=== PATIENT | female | born 1955 | race Caucasian/White ===

== ENCOUNTER 2021-11-13 18:44 | Inpatient (IN) | payer BC, MEDICARE ==
[~2021-11-13 18:44] MED LIST: Iopamidol 370 76% 100 ML VIAL ONE
[2021-11-13 19:34] LABS: Bilirubin Neg (Negative); Blood, Urine 50 (Negative); Clarity Clear (Clear); Glucose, Urine (Dipstick) Normal (Negative); Ketone, Urine Negative (Negative); Leukocyte 500 (Negative); Nitrite Negative (Negative); Protein, Urine (Dipstick) 15 mg/dl (Neg-Trace); Specific Gravity, Urine 1.005 (1.002-1.036); Urobilinogen Normal mg/dL (Less than 2)
[2021-11-13 19:38] LABS: #Monocytes 1.1 10x3/uL (0.0-1.1); #Neutrophils 5.4 10x3/uL (1.5-8.4); %Basophils 0.5 % (0.0-2.0); %Eosinophils 0.1 % (0.0-6.0); %Lymphocytes 19.4 % (18.0-47.0); %Neutrophils 66.6 % (40.0-75.0); Hemoglobin 10.2 g/dL (12.0-15.5); Mean Corpuscular Hemoglobin 29.1 pg (27.0-33.0); Mean Corpuscular Volume 85.5 fl (81.6-98.3); Mean Platelet Volume 10.3 fl (7.4-10.4); Platelet Count 245 10x3/uL (150-450); RBC Distribution Width 12.6 % (11.5-14.5); Red Blood Cell (RBC) Count 3.51 10x6/uL (3.90-5.03); White Blood Cell (WBC) Count 8.1 10x3/uL (3.5-10.5)
[2021-11-13] MEDS ORDERED: Ketorolac Tromethamine 30 MG/ML VIAL ONE (19:39)
[2021-11-13] MEDS ORDERED: methylPREDNISolone Sod Succ 40 MG VIAL ONE (19:39)
[2021-11-13] MEDS ORDERED: Acetaminophen 500 MG TAB ONE (19:39)
[2021-11-13] MEDS ORDERED: diphenhydrAMINE 50 MG/ML VIAL ONE ×2 (19:39→21:57)
[2021-11-13 19:40] LABS: Bacteria/HPF Rare-Few HPF (None Seen); RBC/HPF 0-3 HPF (0-3)
[2021-11-13] MEDS ORDERED: Famotidine/PF 20 mg/2ml Vial ONE (19:40)
[2021-11-13 19:52] LABS: ALT (SGPT) 16 U/L (8-55); AST (SGOT) 22 U/L (5-34); Albumin 4.2 g/dL (3.4-4.8); Alkaline Phosphatase 83 U/L (40-110); Anion Gap 16 mmol/L (10-20); BUN (Urea Nitrogen) 14 mg/dL (9.8-20.1); Bilirubin, Total 0.6 mg/dL (0.2-1.2); Calc. Creatinine Clearance 0 mL/min (70-130); Calcium 9.6 mg/dL (7.8-10.44); Carbon Dioxide 23 mmol/L (23-31); Chloride 98 mmol/L (98-107); Globulin 2.9 g/dL (2.4-3.5); Glucose 108 mg/dL (80-115); Lipase 27 U/L (8-78); Protein, Total 7.1 g/dL (5.8-8.1); Sodium 134 mmol/L (136-145)
[2021-11-13 19:59] LABS: Potassium 2.9 mmol/L (3.5-5.1)
[2021-11-13 20:53] LABS: SARS-CoV-2 NAA Rapid Test Not Detected (NotDetected)
[2021-11-13] MEDS ORDERED: Potassium Chloride 20 MEQ TAB ONE (22:21)
[2021-11-13] MEDS ORDERED: cefTRIAXone\\ROCEPHIN 1 GM VIAL ONE (22:21)
[2021-11-13] MEDS ORDERED: metroNIDAZOLE 500 MG/100 ML BAG ONE (23:01)
[2021-11-13] MEDS ORDERED: Senokot S 8.6-50 MG TAB PO PRN (23:02)
[2021-11-13] MEDS ORDERED: Nitroglycerin 0.4 MG TAB (25 Tab Bottle) SL PRN (23:02)
[2021-11-13] MEDS ORDERED: Ondansetron PF 4 MG/2 ML Vial IVP PRN (23:02)
[2021-11-13] MEDS ORDERED: Zolpidem Tartrate 5 MG TAB PO PRN (23:02)
[2021-11-13] MEDS ORDERED: Calcium Carbonate 500 MG ChewTAB PO PRN (23:02)
[2021-11-13] MEDS ORDERED: Lactated Ringer's 1,000 ML IV SCH (23:15)
[2021-11-14] MEDS ORDERED: Potassium Chloride 20 MEQ TAB PO SCH (00:30)
[2021-11-14 00:40] VITALS: BMI 26.4
[2021-11-14] MEDS ORDERED: Aspirin Chewable 81 MG TAB PO SCH (01:00)
[2021-11-14] MEDS: Acetaminophen 325 MG TAB PO PRN ×2 (03:54→13:15)
[2021-11-14 04:45] LABS: Hemoglobin 10.5 g/dL (12.0-15.5); Mean Corpuscular HGB CONC 34.7 g/dL (32.0-36.0); Mean Corpuscular Hemoglobin 29.1 pg (27.0-33.0); Mean Corpuscular Volume 83.9 fl (81.6-98.3); Mean Platelet Volume 10.3 fl (7.4-10.4); Platelet Count 253 10x3/uL (150-450); RBC Distribution Width 12.5 % (11.5-14.5); Red Blood Cell (RBC) Count 3.61 10x6/uL (3.90-5.03); White Blood Cell (WBC) Count 7.7 10x3/uL (3.5-10.5)
[2021-11-14 04:52] LABS: ALT (SGPT) 17 U/L (8-55); AST (SGOT) 19 U/L (5-34); Albumin 3.8 g/dL (3.4-4.8); Alkaline Phosphatase 86 U/L (40-110); Anion Gap 15 mmol/L (10-20); BUN (Urea Nitrogen) 15 mg/dL (9.8-20.1); Bilirubin, Total 0.3 mg/dL (0.2-1.2); Calc. Creatinine Clearance 86 mL/min (70-130); Calcium 9.3 mg/dL (7.8-10.44); Carbon Dioxide 21 mmol/L (23-31); Cardiac Risk 2.7 (Less than 4.5); Chloride 109 mmol/L (98-107); Cholesterol 133 mg/dl (< 200 Desired); Globulin 2.7 g/dL (2.4-3.5); Glucose 173 mg/dL (80-115); HDL Cholesterol 50 mg/dL (>60 Neg Risk); LDL Cholesterol, Calculated 68 mg/dL; Magnesium 1.8 mg/dL (1.6-2.6); Protein, Total 6.5 g/dL (5.8-8.1); Sodium 141 mmol/L (136-145); Triglycerides 75 mg/dL (Less than 150)
[2021-11-14] MEDS: metroNIDAZOLE 500 MG in Premix Bag 1 BAG IVPB SCH ×3 (05:30→21:31)
[2021-11-14 06:13] LABS: MDiff Complete? YES
[2021-11-14 06:17] LABS: Band 4 % (5-11); Lymphocytes 9 % (21-51); Monocytes 2 % (0-10); Neutrophil 85 % (42-75)
[2021-11-14 06:18] LABS: Platelet Morphology Comment Appears Adequate; RBC Morphology Normal
[2021-11-14] MEDS: Enoxaparin Sodium 40 MG/0.4 ML SYRINGE SC SCH (09:44)
[2021-11-14] MEDS: Aspirin Chewable 81 MG TAB PO SCH (09:44)
[2021-11-14] MEDS ORDERED: Non-Formulary Medication 1 EACH (Fluticasone Propionate [Flovent Diskus] 50 MCG Blst.W.Dev PRN (14:55)
[2021-11-14] MEDS ORDERED: Sodium Chloride 0.9% 100 ML ONE (20:34)
[2021-11-14] MEDS: Atorvastatin Calcium 40 MG TAB PO SCH (20:45)
[2021-11-14] MEDS: Montelukast Sodium 10 mg Tablet PO SCH (20:45)
[2021-11-14] MEDS ORDERED: cefTRIAXone\\ROCEPHIN 1 GM in Sodium Chloride 0.9% 100 ML IVPB SCH (22:00)
[2021-11-15] MEDS ORDERED: HYDROcodone/Acetaminophen 5/325 mg Tablet PO SCH (00:45)
[2021-11-15] MEDS: metroNIDAZOLE 500 MG in Premix Bag 1 BAG IVPB SCH ×2 (05:37→14:03)
[2021-11-15 08:20] LABS: #Basophils 0.1 10x3/uL (0.0-0.2); #Eosinphils 0.1 10x3/uL (0.0-0.5); #Monocytes 0.7 10x3/uL (0.0-1.1); #Neutrophils 4.3 10x3/uL (1.5-8.4); %Basophils 0.8 % (0.0-2.0); %Eosinophils 1.2 % (0.0-6.0); %Lymphocytes 28.7 % (18.0-47.0); %Monocytes 9.1 % (0.0-10.0); %Neutrophils 59.8 % (40.0-75.0); Mean Corpuscular HGB CONC 32.5 g/dL (32.0-36.0); Mean Corpuscular Hemoglobin 28.5 pg (27.0-33.0); Mean Corpuscular Volume 87.7 fl (81.6-98.3); Mean Platelet Volume 10.4 fl (7.4-10.4); Platelet Count 250 10x3/uL (150-450); RBC Distribution Width 12.9 % (11.5-14.5); Red Blood Cell (RBC) Count 3.16 10x6/uL (3.90-5.03); White Blood Cell (WBC) Count 7.3 10x3/uL (3.5-10.5)
[2021-11-15 08:35] LABS: ALT (SGPT) 15 U/L (8-55); AST (SGOT) 16 U/L (5-34); Albumin 3.5 g/dL (3.4-4.8); Alkaline Phosphatase 69 U/L (40-110); Anion Gap 16 mmol/L (10-20); BUN (Urea Nitrogen) 13 mg/dL (9.8-20.1); Bilirubin, Total 0.2 mg/dL (0.2-1.2); Calc. Creatinine Clearance 97 mL/min (70-130); Carbon Dioxide 22 mmol/L (23-31); Chloride 110 mmol/L (98-107); Globulin 2.3 g/dL (2.4-3.5); Glucose 92 mg/dL (80-115); Magnesium 1.9 mg/dL (1.6-2.6); Potassium 3.6 mmol/L (3.5-5.1); Protein, Total 5.8 g/dL (5.8-8.1); Sodium 144 mmol/L (136-145)
[2021-11-15] MEDS: Enoxaparin Sodium 40 MG/0.4 ML SYRINGE SC SCH (09:14)
[2021-11-15] MEDS: Acetaminophen 325 MG TAB PO PRN (09:14)
[2021-11-15] MEDS: Montelukast Sodium 10 mg Tablet PO SCH ×2 (09:14→20:34)
[2021-11-15] MEDS: Diltiazem HCl SR 60 mg Capsule PO SCH (09:15)
[2021-11-15] MEDS: Aspirin Chewable 81 MG TAB PO SCH (09:15)
[2021-11-15] MEDS: Ciprofloxacin 500 MG TAB PO SCH (20:34)
[2021-11-15] MEDS: Atorvastatin Calcium 40 MG TAB PO SCH (20:34)
[2021-11-15] MEDS: metroNIDAZOLE 500 MG TAB PO SCH (22:12)
[2021-11-16 04:20] LABS: #Basophils 0.1 10x3/uL (0.0-0.2); #Eosinphils 0.1 10x3/uL (0.0-0.5); #Monocytes 0.5 10x3/uL (0.0-1.1); #Neutrophils 3.5 10x3/uL (1.5-8.4); %Basophils 0.8 % (0.0-2.0); %Eosinophils 1.7 % (0.0-6.0); %Lymphocytes 29.7 % (18.0-47.0); %Monocytes 9.1 % (0.0-10.0); %Neutrophils 58.4 % (40.0-75.0); Hemoglobin 9.2 g/dL (12.0-15.5); Mean Corpuscular HGB CONC 33.5 g/dL (32.0-36.0); Mean Corpuscular Hemoglobin 28.4 pg (27.0-33.0); Mean Corpuscular Volume 84.9 fl (81.6-98.3); Platelet Count 251 10x3/uL (150-450); RBC Distribution Width 12.8 % (11.5-14.5); Red Blood Cell (RBC) Count 3.24 10x6/uL (3.90-5.03); White Blood Cell (WBC) Count 5.9 10x3/uL (3.5-10.5)
[2021-11-16 04:35] LABS: Anion Gap 13 mmol/L (10-20); BUN (Urea Nitrogen) 12 mg/dL (9.8-20.1); Calc. Creatinine Clearance 98 mL/min (70-130); Calcium 8.8 mg/dL (7.8-10.44); Carbon Dioxide 23 mmol/L (23-31); Chloride 109 mmol/L (98-107); Glucose 98 mg/dL (80-115); Iron 50 ug/dL (50-170); Iron Binding Capacity, Total 241 mcg/dL (265-497); Magnesium 1.7 mg/dL (1.6-2.6); Potassium 3.3 mmol/L (3.5-5.1); Sodium 142 mmol/L (136-145)
[2021-11-16] MEDS: metroNIDAZOLE 500 MG TAB PO SCH ×2 (06:00→14:13)
[2021-11-16] MEDS: Ciprofloxacin 500 MG TAB PO SCH (06:00)
[2021-11-16] MEDS ORDERED: Potassium Chloride 20 MEQ TAB PO SCH (08:00)
[2021-11-16] MEDS: Magnesium 2 GM/50 ML(in water) 2 GM in Premix Bag 1 BAG IVPB SCH ×2 (10:41→13:51)
[2021-11-16] MEDS: Aspirin Chewable 81 MG TAB PO SCH (10:41)
[2021-11-16] MEDS: Potassium Chloride 20 MEQ in Premix Bag 1 BAG IVPB SCH ×2 (10:42→13:51)
[2021-11-16] MEDS: Montelukast Sodium 10 mg Tablet PO SCH (10:42)
[2021-11-16] MEDS: Diltiazem HCl SR 60 mg Capsule PO SCH (10:42)
[2021-11-16 11:50] VITALS: TEMP 96.1
[2021-11-16 12:07] LABS: Hemoglobin A1c 5.7 % (4.0-6.0)
[2021-11-16 12:24] VITALS: BP 135/86
[2021-11-16 12:57] LABS: BUN (Urea Nitrogen) 11 mg/dL (9.8-20.1); Calc. Creatinine Clearance 92 mL/min (70-130); Chloride 106 mmol/L (98-107); Glucose 98 mg/dL (80-115); Magnesium 1.9 mg/dL (1.6-2.6); Potassium 3.6 mmol/L (3.5-5.1)
[2021-11-16 14:45] LABS: Anion Gap 14 mmol/L (10-20); Calcium 9.3 mg/dL (7.8-10.44); Carbon Dioxide 23 mmol/L (23-31); Sodium 139 mmol/L (136-145)
== END 2021-11-16 15:00 | disposition home or self-care (01) | DRG 871 ==
LOC: CSHERS 18:44 → CSHTELE 23:02 → UNDOADMIN 11-14 00:23 → CSHTELE 11-14 00:23
PROVIDERS: ADMIT Student in an Organized Health Care Education/Training Program; ATTEND Family Medicine
DX: A41.51 Sepsis due to Escherichia coli [E. coli] (principal); K57.93 Diverticulitis of intestine, part unspecified, without perforation or abscess with bleeding; N12 Tubulo-interstitial nephritis, not specified as acute or chronic; I13.0 Hypertensive heart and chronic kidney disease with heart failure and stage 1 through stage 4 chronic kidney disease, or unspecified chronic kidney disease; I50.32 Chronic diastolic (congestive) heart failure; Z20.822 Contact with and (suspected) exposure to COVID-19; K52.9 Noninfective gastroenteritis and colitis, unspecified; E87.6 Hypokalemia; D63.1 Anemia in chronic kidney disease; E78.5 Hyperlipidemia, unspecified; E11.22 Type 2 diabetes mellitus with diabetic chronic kidney disease; K21.9 Gastro-esophageal reflux disease without esophagitis; N18.2 Chronic kidney disease, stage 2 (mild); J30.2 Other seasonal allergic rhinitis; K57.30 Diverticulosis of large intestine without perforation or abscess without bleeding; Z91.041 Radiographic dye allergy status; Z79.82 Long term (current) use of aspirin; Z79.899 Other long term (current) drug therapy; Z90.710 Acquired absence of both cervix and uterus; Z90.49 Acquired absence of other specified parts of digestive tract; Z82.49 Family history of ischemic heart disease and other diseases of the circulatory system; Z87.891 Personal history of nicotine dependence
CPT/HCPCS: 36415; 71045; 71275; 74177; 80048; 80053; 80061; 81003; 81015; 82274; 82728; 83036; 83540; 83550; 83605; 83630; 83690; 83735; 84443; 84484; 85025; 85379; 87040; 87045; 87046; 87077; 87081; 87086; 87186; 87324; 87427; 87449; 93005; 93010; 93306; 96365; 96367; 96375; J0696; J1200; J1650; J1885; J2920; J3475; J3480; J3490; J7120; Q9967; S0028

== ENCOUNTER 2024-01-05 14:33 | Emergency (ER) | payer BC, MEDICARE ==
[~2024-01-05 14:33] MED LIST changes: +Iopamidol 300 61% 100 ML VIAL FS ONE; -Iopamidol 370 76% 100 ML VIAL ONE
[2024-01-05] MEDS ORDERED: diphenhydrAMINE 50 MG/ML VIAL ONE (15:19)
[2024-01-05] MEDS ORDERED: Famotidine/PF 20 mg/2ml Vial ONE (15:19)
[2024-01-05] MEDS ORDERED: methylPREDNISolone Sod Succ/PF 125 MG/2 ML VIAL ONE (15:19)
[2024-01-05 15:44] LABS: Bilirubin Neg (Negative); Blood, Urine Negative (Negative); Clarity Clear (Clear); Glucose, Urine (Dipstick) Normal (Negative); Ketone, Urine Negative (Negative); Leukocyte 25 (Negative); Nitrite Negative (Negative); Protein, Urine (Dipstick) Negative (Neg-Trace); Urobilinogen Normal mg/dL (Less than 2)
[2024-01-05 15:45] LABS: Hemoglobin 11.8 g/dL (12.0-15.5); Mean Corpuscular HGB CONC 33.7 g/dL (32.0-36.0); Mean Corpuscular Hemoglobin 29.6 pg (27.0-33.0); Mean Corpuscular Volume 87.7 fL (81.6-98.3); Mean Platelet Volume 10.9 fL (7.4-10.4); Platelet Count 261 10x3/uL (150-450); Red Blood Cell (RBC) Count 3.99 10x6/uL (3.90-5.03); White Blood Cell (WBC) Count 23.8 10x3/uL (3.5-10.5)
[2024-01-05 15:48] LABS: MDiff Complete? YES
[2024-01-05 15:51] LABS: CAUTI Indications for Culture Pelvic or flank pain; RBC/HPF 0-3 HPF (0-3); WBC/HPF 0-3 HPF (0-3)
[2024-01-05 15:52] LABS: Bacteria/HPF Rare-Few HPF (None Seen); Squamous Epithelial 0-3 HPF (0-3)
[2024-01-05 15:53] LABS: Urine Culture Reflex No No
[2024-01-05 15:55] LABS: ALT (SGPT) 30 U/L (8-55); AST (SGOT) 37 U/L (5-34); Albumin 3.2 g/dL (3.4-4.8); Alkaline Phosphatase 141 U/L (40-110); Anion Gap 16 mmol/L (10-20); BUN (Urea Nitrogen) 14 mg/dL (9.8-20.1); Bilirubin, Total 0.4 mg/dL (0.2-1.2); Calc. Creatinine Clearance 0 mL/min (70-130); Calcium 9.5 mg/dL (7.8-10.44); Carbon Dioxide 22 mmol/L (23-31); Chloride 106 mmol/L (98-107); Estimated GFR 85; Globulin 2.9 g/dL (2.4-3.5); Glucose 98 mg/dL (80-115); Lipase 35 U/L (8-78); Potassium 3.3 mmol/L (3.5-5.1); Protein, Total 6.1 g/dL (5.8-8.1); Sodium 141 mmol/L (136-145)
[2024-01-05 15:59] LABS: Troponin I Less than 0.010 ng/mL (< 0.028)
[2024-01-05 17:27] LABS: Eosinophils 59 % (0-10); Lymphocytes 3 % (21-51); Monocytes 2 % (0-10); Neutrophil 35 % (42-75); Other Cell Types 1
[2024-01-05 17:31] LABS: Anisocytosis SLIGHT = 6-15 cells (100X) (0-5/hpf); Burr Cells SLIGHT = 2-5 cells (100X) (0-1/hpf); Hypochromia SLIGHT = 6-15 cells (100X) (0-5/hpf); Ovalocytes SLIGHT = 2-5 cells (100X) (0-1/hpf); Poikilocytosis SLIGHT = 6-15 cells (100X) (0-5/hpf); Tear Drops SLIGHT = 2-5 cells (100X) (0-1/hpf)
[2024-01-05 17:33] LABS: Vacuoles SLIGHT
[2024-01-05 17:34] LABS: Reflex for Review?? YES
== END 2024-01-05 18:42 | disposition home or self-care (01) ==
LOC: CSHERS 14:33
DX: K57.90 Diverticulosis of intestine, part unspecified, without perforation or abscess without bleeding (principal); I10 Essential (primary) hypertension; E78.5 Hyperlipidemia, unspecified; K21.9 Gastro-esophageal reflux disease without esophagitis; Z79.899 Other long term (current) drug therapy; Z79.82 Long term (current) use of aspirin
CPT/HCPCS: 71275; 74174; 80053; 81001; 83605; 83690; 84484; 85025; 93005; J1200; J2930; Q9967; S0028; 36415; 85060; 96374; 96375